=== PATIENT | female | born 1950 | race Caucasian/White ===

== ENCOUNTER 2016-12-08 19:29 | Emergency (ER) | payer BC ==
[2016-12-08 19:45] VITALS: RESP 18
--- NOTE | 2016-12-08 20:04 | ED ---
General Adult HPI - General Chief complaint: Fall Stated complaint: fall left knee and back Time Seen by Provider: 12/08/16 19:53 Source: patient, RN notes reviewed Mode of arrival: ambulatory Limitations: no limitations - History of Present Illness Initial comments: Patient 66-year-old female who presents emergency room today with chief complaint of a fall that occurred yesterday. She does admit that she was going down 4 steps when she tripped fell hurting her left knee, left hip. Does admit some pain that radiates between these 2 areas. Admits that she has had some lower back pain and neck pain. States worse with his left knee and left hip having difficult time ambulation and bearing weight. Denies any other complaints or associated symptoms. Denies any loss consciousness. Denies any headache. Patient denies any recent fever, chills, shortness of breath, chest pain, abdominal pain, nausea or vomiting, dysuria or hematuria, constipation or diarrhea, headaches or visual changes, or any other complaints. - Related Data Home Medications Medication Instructions Recorded Confirmed Cholecalciferol [Vitamin D3] 1,000 unit PO DAILY 12/08/16 12/08/16 Fenofibrate (Unk Dose) 1 tab PO DAILY 12/08/16 12/08/16 Hydroxychloroquine Sulfate 200 mg PO DAILY 12/08/16 12/08/16 [Plaquenil] Simvastatin [Zocor] 40 mg PO HS 12/08/16 12/08/16 Previous Rx's Medication Instructions Recorded Ibuprofen [Motrin] 600 mg PO Q6HR PRN #40 day 12/08/16 Allergies Allergy/AdvReac Type Severity Reaction Status Date / Time No Known Allergies Allergy Verified 12/08/16 20:02 Review of Systems ROS Statement: Those systems with pertinent positive or pertinent negative responses have been documented in the HPI. ROS Other: All systems not noted in ROS Statement are negative. Past Medical History Past Medical History: Hyperlipidemia Additional Past Medical History / Comment(s): Lichen Planus (autoimmune condition) History of Any Multi-Drug Resistant Organisms: None Reported Past Surgical History: Hysterectomy Past Psychological History: No Psychological Hx Reported Smoking Status: Current every day smoker Past Alcohol Use History: None Reported Past Drug Use History: None Reported General Exam - General Exam Comments Initial Comments: General: The patient is awake and alert, in no distress, and does not appear acutely ill. Eye: Pupils are equal, round and reactive to light, extra-ocular movements are intact. No nystagmus. There is normal conjunctiva bilaterally. No signs of icterus. Ears, nose, mouth and throat: There are moist mucous membranes and no oral lesions. Neck: The neck is supple, there is no tenderness or JVD. Cardiovascular: There is a regular rate and rhythm. No murmur, rub or gallop is appreciated. Respiratory: Lungs are clear to auscultation, respirations are non-labored, breath sounds are equal. No wheezes, stridor, rales, or rhonchi. Musculoskeletal: Normal range of motion. Normal appearance of the left hip, left knee, left ankle no signs of swelling bruising or deformity. Normal appearance of cervical, thoracic, lumbar spine. Mild tenderness at C6-C7. Mild tenderness at L5-S1. No other bony tenderness. No step-offs deformities appreciated. Patient does have mild tenderness of the anterior aspect of the left knee. Mildly tender with a logroll maneuver to the left hip. Strength 5/ 5. Sensation intact. Pulses equal bilaterally 2+. Neurological: A&O x 3. CN II-XII intact, There are no obvious motor or sensory deficits. Coordination appears grossly intact. Speech is normal. Skin: Skin is warm and dry and no rashes or lesions are noted. Psychiatric: Cooperative, appropriate mood & affect, normal judgment. Limitations: no limitations Course Vital Signs 12/08/16 19:42 Temperature 98.8 F Pulse Rate 87 Respiratory 18 Rate Blood Pressure 147/77 O2 Sat by Pulse 97 Oximetry Medical Decision Making - Medical Decision Making She was reviewed and are negative for any acute fracture dislocation. Results were discussed with the patient. Patient will be discharged home. Patient is advised to continue to ice elevate the affected area and use ibuprofen for pain as needed. Advised to return here to emergency room if any symptoms increase or worsen or for any other concerns. Disposition Clinical Impression: Fall, Contusion Disposition: HOME SELF-CARE Condition: Good Instructions: Contusion in Adults (ED) Additional Instructions: Please use medication as discussed. Please follow-up with family doctor in the next 2 days of symptoms have not improved. Please return to emergency room if the symptoms increase or worsen or for any other concerns. Prescriptions: Ibuprofen [Motrin] 600 mg PO Q6HR PRN #40 day PRN Reason: Pain Referrals: None,Stated [Primary Care Provider] - 1-2 days Time of Disposition: 20:54
--- NOTE | 2016-12-08 20:41 | XR ---
EXAMINATION TYPE: XR cervical spine comp - 5V DATE OF EXAM: 12/08/2016 TECHNIQUE: Frontal, lateral, oblique, swimmers, and open mouth view of the cervical spine are obtaine d. HISTORY: fall COMPARISON: None FINDINGS: The cervical spine is visualized from C1 through C7; it is satisfactory in alignment witho ut evidence of acute fracture or dislocation. The pre-vertebral soft tissue appears within normal li mits. The C1-C2 articulation is within normal limits on the open mouth view. The oblique images are within normal limits. C4-5 and C5-6 and C6-7 shows advanced cervical spondylosis changes. IMPRESSION: 1. No acute process. 2. Multilevel advanced cervical spondylosis.
--- NOTE | 2016-12-08 20:42 | XR ---
EXAMINATION TYPE: XR knee complete LT - 3 views DATE OF EXAM: 12/08/2016 COMPARISON: NONE HISTORY: Pain after injury TECHNIQUE: 3 views FINDINGS: Bones and joints and soft tissues are unremarkable. IMPRESSION: No acute process.
--- NOTE | 2016-12-08 20:43 | XR ---
EXAMINATION TYPE: XR Hip LT and AP Pelvis DATE OF EXAM: 12/08/2016 COMPARISON: NONE HISTORY: Pain after injury TECHNIQUE: A single AP view of the pelvis is obtained. Two views of the left hip are obtained. FINDINGS: There is no acute fracture/dislocation evident in the pelvis. The hip and sacroiliac join ts appear symmetric and unremarkable. The overlying soft tissue appears unremarkable. Two views of left hip show no acute fracture or dislocation. No focal lytic or sclerotic lesion seen in the proximal left femur. The overlying soft tissue is unremarkable. IMPRESSION: There is no acute fracture or dislocation in the pelvis or left hip.
--- NOTE | 2016-12-08 20:45 | XR ---
EXAMINATION TYPE: XR lumbar spine 3V DATE OF EXAM: 12/08/2016 COMPARISON: NONE HISTORY: Pain after injury TECHNIQUE: 3 views FINDINGS: Negative for fracture or malalignment. The vertebral segments are maintained in terms of morphology. No focal skeletal findings. Multilevel degenerative facet and disc changes, most advanced at the lumbosacral junction. IMPRESSION: No acute process.
[2016-12-08 21:00] VITALS: BP 128/79; PULSE 88; TEMP 98.2
== END 2016-12-08 20:55 | disposition home or self-care (01) ==
LOC: EC 19:29
DX: T14.8 Other injury of unspecified body region (principal); M25.562 Pain in left knee; M25.552 Pain in left hip; M54.5 Low back pain; M54.2 Cervicalgia; E78.5 Hyperlipidemia, unspecified; L43.9 Lichen planus, unspecified; F17.200 Nicotine dependence, unspecified, uncomplicated; Z79.899 Other long term (current) drug therapy; W10.9XXA Fall (on) (from) unspecified stairs and steps, initial encounter; Y93.89 Activity, other specified
CPT/HCPCS: 72050; 72100; 73502; 99283